=== PATIENT | male | born 2000 | race Caucasian/White ===

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

== ENCOUNTER 2020-09-16 23:18 | Emergency (ER) | payer BC ==
--- NOTE | 2020-09-17 04:05 | ER ---
Nurse's Notes [facility] Name: Kingsley Alvarenga Age: 20 yrs Sex: Male : 2000 Arrival Date: 09/16/2020 Time: 23:21 Bed 13 Private MD: Diagnosis: Presentation: 09/16 23:23 Chief complaint: Patient states: he was playing a video game at home and suddenly had bb chest pain really bad with tightness and sharp pain. Coronavirus screen: At this time, the client does not indicate any symptoms associated with coronavirus-19. Ebola Screen: No symptoms or risks identified at this time. Initial Sepsis Screen: Does the patient meet any 2 criteria? No. Patient's initial sepsis screen is negative. Does the patient have a suspected source of infection? No. Patient's initial sepsis screen is negative. Risk Assessment: Do you want to hurt yourself or someone else? Patient reports no desire to harm self or others. Onset of symptoms was September 16, 2020. 23:23 Method Of Arrival: Ambulatory bb 23:23 Acuity: BILL 3 bb Triage Assessment: 23:25 General: Appears in no apparent distress. Behavior is calm, cooperative. Pain: bb Complains of pain in chest Pain currently is 4 out of 10 on a pain scale. Neuro: Level of Consciousness is awake, alert, obeys commands, Oriented to person, place, time, situation. Cardiovascular: Capillary refill < 3 seconds Patient's skin is warm and dry. Respiratory: Respiratory effort is even, unlabored, Respiratory pattern is regular. GI: No signs and/or symptoms were reported involving the gastrointestinal system. Derm: Skin is pink, warm \T\ dry. Musculoskeletal: Circulation, motion, and sensation intact. Historical: - Allergies: 23:25 No Known Allergies; bb - Home Meds: 23:25 None [Active]; bb - PMHx: 23:25 None; bb - PSHx: 23:25 None; bb - Immunization history:: Adult Immunizations up to date. - Social history:: Smoking status: Patient denies any tobacco usage or history of. Assessment: 09/17 04:00 Reassessment: Pt Verbalized desire to leave. Provider notified. Pt informed that jb4 leaving at this time would be considered leaving against medical advise and that the provider wants to do more test. Provider is at the bedside explaining desire for further testing. Pt refused further testing. Informed pt that symptoms could return or worsen up to the point of or serious injury. Pt verbalized understanding of risk, signed AMA form, left ED with steady gait. Vital Signs: 09/16 23:23 BP 141 / 84; Pulse 73; Resp 16; Temp 98.6(O); Pulse Ox 98% on R/A; Weight 63.5 kg (R); bb Height 5 ft. 6 in. (167.64 cm) (R); Pain 4/10; 23:23 Body Mass Index 22.60 (63.50 kg, 167.64 cm) bb ED Course: 23:21 Patient arrived in ED. bp1 23:25 Triage completed. bb 23:25 Arm band placed on Patient placed in waiting room, Patient notified of wait time. EKG bb completed in triage. Results shown to MD. Family accompanied patient. 09/17 03:25 Antonio Tran MD is Attending Physician. mh7 Administered Medications: No medications were administered Outcome: 04:00 AMA AMA form signed jb4 04:00 Condition: unchanged 04:04 Patient left the ED. jb4 Signatures: Lani Whitfield RN RN bb [place] Rocha, GRAEME RN jb4 Genet Boyce [facility] Antonio Tran MD MD mh7
[2020-09-17 04:12] VITALS: BP 141/84; TEMP 98.6; O2SAT 98
--- NOTE | 2020-09-17 12:59 | EKG ---
Test Date: 2020-09-16 Test Time: 23:33:14 Territory Sales Professional: TL MEASUREMENT RESULTS: Intervals: Rate: 63 LA: 148 QRSD: 88 QT: 364 QTc: 372 [place]: P: 58 LA: 148 QRS: 70 T: 29 INTERPRETIVE STATEMENTS: Sinus rhythm with marked sinus arrhythmia Otherwise normal ECG Compared to ECG 05/31/2018 15:25:39 Sinus bradycardia no longer present Electronically Signed On 09-17-20 12:58:59 CDT by Deandre Gonzalez
--- OUTSIDE RECORDS SUMMARY | 2020-09-17 15:04 | XMS REPORT | Continuity of Care Document ---
:2000 Author Organization [facility] t Address [address] [place] [address] Care Team Providers Name Role Phone CHA Attending Clinician Unavailable Problems Condition Condition Condition Status Onset Resolution Last Treating Co mments Source Name Details Category Date Date Treatment Clinician Date Sensation Sensation Problem Active Uni vers of of ity of fullness fullness [place] in both in both Physici ears ears ans Allergies, Adverse Reactions, Alerts This patient has no known allergies or adverse reactions. Social History Smoking Status Start Date Stop Date Source Never smoker [facility] Physicians Medications This patient has no known medications. Vital Signs Vital Name Observation Time Observation Value Comments Source Weight 2018-05-29 14:29:00 116.4375 [lb_av] [facility] Physicians Body Mass Index 2018-05-29 14:29:00 17.7 kg/m2 [facility] Calculated Physicians Heart Rate 2018-05-29 14:29:00 73 /min [facility] Physicians BP Systolic 2018-05-29 14:29:00 118 mm[Hg] [facility] Phys[facility] BP Diastolic 2018-05-29 14:29:00 80 mm[Hg] [facility] Height 2018-05-29 14:29:00 68 [in_us] [facility] Physicians Procedures This patient has no known procedures. Encounters Start End Encounter Admission Attending Care Care Encounter Source Date/Time Date/Time Type Type Clinicians Facility Department ID 2018-09-17 2018-09-17 Emergency E [facility] [id number] [facility] 16:48:00 16:48:00 2018-05-29 2018-05-29 Appointmen BENJIE CHA [facility]tor[facility] [phone] [facility] 13:45:00 13:45:00 t; SURI CHA yngology - i ty of [facility] ans Results This patient has no known results.
--- NOTE | 2020-09-18 09:10 | EDPHYS ---
Physician Documentation [facility] Name: Kingsley Alvarenga Age: 20 yrs Sex: Male : 2000 Arrival Date: 09/16/2020 Time: 23:21 Bed 13 Private MD: ED Physician Antonio Tran HPI: 09/17 03:40 This 20 yrs old Male presents to ER via Ambulatory with complaints of Chest mh7 Pain, Chest Tightness. 03:40 Associated signs and symptoms: Pertinent negatives: abdominal pain, cough, diaphoresis, mh7 dizziness, headache, lower extremity pain, lower extremity swelling, lightheadedness, nausea, near syncope, palpitations, recent travel, shortness of breath, syncope, vomiting. 03:40 The patient or guardian reports chest pain that is located primarily in the substernal mh7 area. The pain does not radiate. The chest pain is described as sharp, tightness. Duration: The patient or guardian reports multiple episodes, that have now resolved, that are intermittent, that wax and wane. Modifying factors: The symptoms are alleviated by nothing. the symptoms are aggravated by nothing. Severity of pain: At its worst the pain was moderate last night, in the emergency department the pain has improved markedly. Historical: - Allergies: 09/16 23:25 No Known Allergies; bb - Home Meds: 23:25 None [Active]; bb - PMHx: 23:25 None; bb - PSHx: 23:25 None; bb - Immunization history:: Adult Immunizations up to date. - Social history:: Smoking status: Patient denies any tobacco usage or history of. ROS: 09/17 03:40 Constitutional: Negative for fever, chills, and weight loss, Eyes: Negative for injury, mh7 pain, redness, and discharge, ENT: Negative for injury, pain, and discharge, Neck: Negative for injury, pain, and swelling, Respiratory: Negative for shortness of breath, cough, wheezing, and pleuritic chest pain, Abdomen/GI: Negative for abdominal pain, nausea, vomiting, diarrhea, and constipation, Back: Negative for injury and pain, : Negative for injury, bleeding, discharge, and swelling, MS/Extremity: Negative for injury and deformity, Skin: Negative for injury, rash, and discoloration, Neuro: Negative for headache, weakness, numbness, tingling, and seizure, Psych: Negative for depression, anxiety, suicide ideation, homicidal ideation, and hallucinations, Allergy/Immunology: Negative for hives, rash, and allergies, Endocrine: Negative for neck swelling, polydipsia, polyuria, polyphagia, and marked weight changes, Hematologic/Lymphatic: Negative for swollen nodes, abnormal bleeding, and unusual bruising. Exam: 03:40 Constitutional: This is a well developed, well nourished patient who is awake, alert, mh7 and in no acute distress. Head/Face: Normocephalic, atraumatic. Eyes: Pupils equal round and reactive to light, extra-ocular motions intact. Lids and lashes normal. Conjunctiva and sclera are non-icteric and not injected. Cornea within normal limits. Periorbital areas with no swelling, redness, or edema. Neck: Trachea midline, no thyromegaly or masses palpated, and no cervical lymphadenopathy. Supple, full range of motion without nuchal rigidity, or vertebral point tenderness. No Meningismus. Chest/axilla: Normal chest wall appearance and motion. Nontender with no deformity. No lesions are appreciated. Cardiovascular: Regular rate and rhythm with a normal S1 and S2. No gallops, murmurs, or rubs. Normal PMI, no JVD. No pulse deficits. Respiratory: Lungs have equal breath sounds bilaterally, clear to auscultation and percussion. No rales, rhonchi or wheezes noted. No increased work of breathing, no retractions or nasal flaring. Abdomen/GI: Soft, non-tender, with normal bowel sounds. No distension or tympany. No guarding or rebound. No evidence of tenderness throughout. Back: No spinal tenderness. No costovertebral tenderness. Full range of motion. Skin: Warm, dry with normal turgor. Normal color with no rashes, no lesions, and no evidence of cellulitis. MS/ Extremity: Pulses equal, no cyanosis. Neurovascular intact. Full, normal range of motion. Neuro: Awake and alert, GCS 15, oriented to person, place, time, and situation. Cranial nerves II-XII grossly intact. Motor strength 5/5 in all extremities. Sensory grossly intact. Cerebellar exam normal. Normal gait. Psych: Awake, alert, with orientation to person, place and time. Behavior, mood, and affect are within normal limits. Vital Signs: 09/16 23:23 BP 141 / 84; Pulse 73; Resp 16; Temp 98.6(O); Pulse Ox 98% on R/A; Weight 63.5 kg (R); bb Height 5 ft. 6 in. (167.64 cm) (R); Pain 4/10; 23:23 Body Mass Index 22.60 (63.50 kg, 167.64 cm) bb MDM: 09/17 03:40 Differential diagnosis: acute pericarditis, anxiety, chest wall pain, costochondritis, mh7 myocarditis, pericarditis, pneumonia, pneumothorax. HEART Score: History: Slightly Suspicious (0), ECG: Normal (0), Age: < or = 45 years (0), Risk Factors: No Risk Factors Known (0). Data reviewed: vital signs, nurses notes, EKG. Data interpreted: Pulse oximetry: on room air is 98 %. Interpretation: normal. Counseling: I had a detailed discussion with the patient and/or guardian regarding: the historical points, exam findings, and any diagnostic results supporting the discharge/admit diagnosis. Refusal of service: The patient/guardian displays adequate decision making capability and despite a detailed discussion of alternatives, benefits, risks, and consequences refuses: all lab tests, all X-rays. 05:01 Patient medically screened. [facility] 09/17 02:26 Order name: EKG - Nurse/Tech; Complete Time: 02:26 mw2 Administered Medications: No medications were administered Disposition Summary: 09/17/20 04:04 Left Against Medical Advice Location: Home jb4 Condition: Undetermined jb4 Signatures: aLni Whitfield RN RN [place] Mejias RN RN jb4 Donna Jimenez mw2 Antonio Tran MD MD mh7 Corrections: (The following items were deleted from the chart) 04:58 04:56 The patient or guardian reports chest pain that is located primarily in the mh7 substernal area, 7 04:58 04:56 The pain does not radiate. [place] [id number] 04:58 04:56 This 20 yrs old Male presents to ER via Ambulatory with complaints of mh7 Chest Pain, Chest Tightness. 7
== END 2020-09-17 04:04 | disposition left against medical advice (07) ==
LOC: ER 23:18
DX: R07.9 Chest pain, unspecified (principal)
CPT/HCPCS: 93005; 99281

== ENCOUNTER 2020-12-10 01:21 | Emergency (ER) | payer BC ==
[2020-12-10 02:02] LABS: Protime INR 1.26
[2020-12-10 02:04] LABS: Absolute Lymphocytes (CBC) 2.4 K/uL (0.7-4.9); RBC Red Blood Cell Count 5.25 M/uL (4.33-5.43)
[2020-12-10 02:12] LABS: Urine Blood Negative (Negative); Urine Glucose Negative (Negative); Urine Protein Negative (Negative); Urine Specific Gravity >=1.030 (1.005-1.030); Urine pH 6.5 (5.0-7.0)
[2020-12-10 02:25] LABS: ALT/SGPT 28 U/L (12-78); AST/SGOT 13 U/L (15-37); Albumin 4.7 g/dL (3.4-5.0); Alkaline Phosphatase 66 U/L (45-117); BUN Blood Urea Nitrogen 8 mg/dL (7-18); Bicarbonate 27 mmol/L (21-32); Bilirubin Direct 0.3 mg/dL (0-0.2); Bilirubin Total 1.2 mg/dL (0.2-1.0); Creatine Phosphokinase 64 U/L (39-308); Glucose Level 93 mg/dL (74-106); Magnesium 2.2 mg/dL (1.8-2.4); NT PRO-BNP 9 pg/mL (<125); Potassium 3.2 mmol/L (3.5-5.1); Protein, Total 7.8 g/dL (6.4-8.2); Sodium Level 142 mmol/L (136-145); Troponin (Emerg Dept Use Only) < 0.02 ng/mL (0.0-0.045)
[2020-12-10 02:33] LABS: Basophils % 0.6 % (0-1.3); Hematocrit 45.1 % (39.6-49.0); Lymphocytes % 31.5 % (15.3-44.8); MPV 7.8 fL (7.6-11.3)
[2020-12-10 02:41] LABS: Barbiturates NEGATIVE (NEGATIVE); Benzodiazepines NEGATIVE (NEGATIVE); Cocaine NEGATIVE (NEGATIVE); METHAMPHETAM NEGATIVE (NEGATIVE); Methadone NEGATIVE (NEGATIVE); Opiates NEGATIVE (NEGATIVE); Phencyclidine NEGATIVE (NEGATIVE); THC Cannibis NEGATIVE (NEGATIVE)
[2020-12-10] MEDS ORDERED: NA CHLORIDE 0.9% 1,000 ML ONE (04:33)
[2020-12-10] MEDS ORDERED: KETOROLAC 30 MG/ML INJ ONE (04:33)
--- NOTE | 2020-12-10 04:43 | ER ---
Nurse's Notes [facility] Name: Kingsley Alvarenga Age: 20 yrs Sex: Male : 2000 Arrival Date: 12/10/2020 Time: 01:24 Bed 13 Private MD: Diagnosis: Palpitations;Chest pain, unspecified Presentation: 12/10 01:38 Chief complaint: Patient states: Pt states his heart has been racing for the past 2 wg days. States he has been seeing a breast trimmer who prescribed metoprolol (unknown dose) and took it yesterday for the first time. Pt states he has been feeling his heart rate in the 120's and feels like it skips and feels palpitations. Pt states he has been also having chest discomfort which radiates into his left arm. Pt denies N/V/D, abd pain, and diaphoresis. Coronavirus screen: Vaccine status: Patient reports being unvaccinated. At this time, the client does not indicate any symptoms associated with coronavirus-19. Ebola Screen: Patient negative for fever greater than or equal to 101.5 degrees Fahrenheit, and additional compatible Ebola Virus Disease symptoms Patient denies exposure to infectious person. Patient denies travel to an Ebola-affected area in the 21 days before illness onset. Initial Sepsis Screen: Does the patient meet any 2 criteria? No. Patient's initial sepsis screen is negative. Does the patient have a suspected source of infection? No. Patient's initial sepsis screen is negative. Risk Assessment: Do you want to hurt yourself or someone else? Patient reports no desire to harm self or others. Onset of symptoms was December 08, 2020. 01:38 Method Of Arrival: Ambulatory 01:38 Acuity: BILL 3 Triage Assessment: 01:42 General: Appears uncomfortable, well groomed, well developed, Behavior is calm, wg cooperative, appropriate for age. Pain: Complains of pain in chest and left arm. Cardiovascular: Reports chest pain, palpitations, Denies diaphoresis, lightheadedness, nausea, shortness of breath, syncope, vomiting. Historical: - Allergies: 01:42 No Known Allergies; wg - Home Meds: 01:42 Metoprolol Tartrate Oral [Active]; wg - PMHx: 01:42 "Rapid Heart Rate"; wg - Immunization history:: Adult Immunizations up to date. - Social history:: Smoking status: Patient denies any tobacco usage or history of. Patient uses street drugs, marijuana, Patient/guardian denies using alcohol, IV drugs. Screenin:45 Abuse screen: Denies threats or abuse. Denies injuries from another. Nutritional dc2 screening: No deficits noted. Tuberculosis screening: No symptoms or risk factors identified. Never had TB. Possible symptoms: None. Fall Risk None identified. No fall in past 12 months (0 pts). No secondary diagnosis (0 pts). No IV (0 pts). Ambulatory Aid- None/Bed Rest/Nurse Assist (0 pts). Gait- Normal/Bed Rest/Wheelchair (0 pts) Mental Status- Oriented to own ability (0 pts). Total Magana Fall Scale indicates No Risk (0-24 pts). Assessment: 01:45 General: Appears in no apparent distress. comfortable, slender, well groomed, well dc2 developed, Behavior is calm, cooperative. Pain: Pain: Complains of pain in Left chest wall radiating almost to the arm pit since 4pm yesterday Pain does not radiate. Pain currently is 2 out of 10 on a pain scale. Quality of pain is described as aching, dull, Pain began 1 day ago. Neuro: No deficits noted. Cardiovascular: No deficits noted. Respiratory: No deficits noted. GI: No deficits noted. : No deficits noted. Musculoskeletal: No deficits noted. 02:42 Reassessment: Patient and/or family updated on plan of care and expected duration. Pain dc2 level reassessed. Vital Signs: 01:38 BP 139 / 78; Pulse 78; Resp 18; Temp 98.7; Pulse Ox 98% on R/A; Weight 65.77 kg; Height wg 5 ft. 7 in. (170.18 cm); Pain 4/10; 01:59 BP 139 / 78; Pulse 78; Resp 17; Pulse Ox 99% on R/A; Pain 2/10; dc2 02:36 BP 118 / 62; Pulse 71; Resp 16; Pulse Ox 100% ; Pain 1/10; dc2 03:07 BP 125 / 66; Pulse 64; Resp 17; Pulse Ox 99% ; Pain 0/10; dc2 04:09 BP 125 / 81; Pulse 82; Resp 17; Pulse Ox 100% ; Pain 2/10; dc2 04:51 BP 124 / 72; Pulse 80; Resp 17; Temp 97.5; Pulse Ox 100% ; Pain 1/10; dc2 01:38 Body Mass Index 22.71 (65.77 kg, 170.18 cm) Vitals: 01:59 Cardiac Rhythm Assessment Regular. dc2 02:37 Cardiac Rhythm Assessment Sinus rhythm. dc2 ED Course: 01:24 Patient arrived in ED. wm 01:25 Antonio Tran MD is Attending Physician. 7 01:42 Triage completed. wg 01:42 Arm band placed on right wrist. EKG completed in triage. Results shown to MD. wg 01:44 Antonette Coronado, RN is Primary Nurse. dc2 01:44 X-ray(s) taken. dc2 01:45 panel monitor on. Pulse ox on. NIBP on. Door closed. dc2 01:45 Patient has correct armband on for positive identification. Bed in low position. Call dc2 light in reach. Side rails up X 1. Adult w/ patient. 01:57 XRAY Chest (1 view) In Process Unspecified. EDMS 01:59 No provider procedures requiring assistance completed. Inserted saline lock: 22 gauge dc2 in right antecubital area, using aseptic technique. Blood collected. Patient maintains SpO2 saturation greater than 95% on room air. 02:02 TSH Sent. dc2 02:02 CPK Sent. dc2 02:02 Basic Metabolic Panel Sent. dc2 02:02 CBC with Diff Sent. dc2 02:02 LFT's Sent. dc2 02:02 Magnesium Sent. dc2 02:02 NT PRO-BNP Sent. dc2 02:02 Troponin (emerg Dept Use Only) Sent. dc2 02:02 PT-INR Sent. dc2 02:03 Urine collected: clean catch specimen, clear, Amount Voided: 30mL. dc2 03:52 CT Chest For PE Angio In Process Unspecified. EDMS 04:51 IV discontinued, intact, bleeding controlled, No redness/swelling at site. Pressure dc2 dressing applied. Administered Medications: 04:10 Drug: NS 0.9% 1000 ml Route: IV; Rate: 1000 ml; Infused Over: 1 hrs; Site: right dc2 antecubital; Delivery: Primary tubing; 04:52 Follow up: IV Status: Completed infusion; IV Intake: 1000ml dc2 04:10 Drug: Ketorolac 30 mg {Note: For left chest pain PRS 2/10.} Route: IVP; Infused Over: 1 dc2 mins; Site: right antecubital; 04:52 Follow up: Response: Pain is decreased dc2 Intake: 04:52 IV: 1000ml; Total: 1000ml. dc2 Outcome: 04:43 Discharge ordered by MD. hsu 04:47 Discharged to home ambulatory. dc2 04:47 Condition: stable 04:47 Discharge instructions given to patient, Instructed on discharge instructions, follow up and referral plans. Demonstrated understanding of instructions. 04:56 Patient left the ED. dc2 Signatures: Dispatcher [employer] EDAntonio Camacho MD MD Ryanne Anaya Liam, RN wg Charters, Denise, RN RN dc2 Corrections: (The following items were deleted from the chart) 04:23 04:10 Ketorolac 30 mg IVP at 1 bolus in right antecubital over 1 hrs dc2 dc2
--- NOTE | 2020-12-10 04:43 | EDPHYS ---
Physician Documentation [facility] Name: Kingsley Alvarenga Age: 20 yrs Sex: Male : 2000 Arrival Date: 12/10/2020 Time: 01:24 Bed 13 Private MD: ED Physician Antonio Tran HPI: 12/10 01:48 This 20 yrs old Male presents to ER via Ambulatory with complaints of Chest mh7 Pain, Shortness Of Breath. 01:48 The patient presents with a history of heart racing. Context: The symptoms occur mh7 without known cause. Onset: The symptoms/episode began/occurred 2 day(s) ago. Duration: The patient or guardian reports multiple episodes, that are intermittent, that wax and wane, with no pattern. Modifying factors: The symptoms are aggravated by nothing. The symptoms are alleviated by nothing. Associated signs and symptoms: Pertinent positives: chest pain, SOB, Pertinent negatives: anxiety, cough, fever, lightheadedness, nausea, syncope, near-syncope, unusual stressors, vertigo, vomiting. Severity of symptoms: At their worst the symptoms were moderate yesterday, in the emergency department the symptoms have improved moderately. The patient has experienced similar episodes in the past, multiple times. The patient has been recently seen by a physician: yesterday. States that he is heart racing intermittently over the last 2 days. He has had similar symptoms intermittently for the past several years. He was started on metoprolol by crisis worker yesterday. He also states that he has had some intermittent chest pain and shortness of breath. Denies any fever, cough, abdominal pain, nausea, vomiting, diarrhea, dizziness, numbness/tingling, or weakness.. Historical: - Allergies: 01:42 No Known Allergies; wg - Home Meds: 01:42 Metoprolol Tartrate Oral [Active]; wg - PMHx: 01:42 "Rapid Heart Rate"; wg - Immunization history:: Adult Immunizations up to date. - Social history:: Smoking status: Patient denies any tobacco usage or history of. Patient uses street drugs, marijuana, Patient/guardian denies using alcohol, IV drugs. ROS: 01:48 Constitutional: Negative for fever, chills, and weight loss, Eyes: Negative for injury, mh7 pain, redness, and discharge, ENT: Negative for injury, pain, and discharge, Neck: Negative for injury, pain, and swelling, Abdomen/GI: Negative for abdominal pain, nausea, vomiting, diarrhea, and constipation, Back: Negative for injury and pain, : Negative for injury, bleeding, discharge, and swelling, MS/Extremity: Negative for injury and deformity, Skin: Negative for injury, rash, and discoloration, Neuro: Negative for headache, weakness, numbness, tingling, and seizure, Psych: Negative for depression, anxiety, suicide ideation, homicidal ideation, and hallucinations, Allergy/Immunology: Negative for hives, rash, and allergies, Endocrine: Negative for neck swelling, polydipsia, polyuria, polyphagia, and marked weight changes, Hematologic/Lymphatic: Negative for swollen nodes, abnormal bleeding, and unusual bruising. Exam: 01:48 Constitutional: This is a well developed, well nourished patient who is awake, alert, mh7 and in no acute distress. Head/Face: Normocephalic, atraumatic. Eyes: Pupils equal round and reactive to light, extra-ocular motions intact. Lids and lashes normal. Conjunctiva and sclera are non-icteric and not injected. Cornea within normal limits. Periorbital areas with no swelling, redness, or edema. Neck: Trachea midline, no thyromegaly or masses palpated, and no cervical lymphadenopathy. Supple, full range of motion without nuchal rigidity, or vertebral point tenderness. No Meningismus. Chest/axilla: Normal chest wall appearance and motion. Nontender with no deformity. No lesions are appreciated. Cardiovascular: Regular rate and rhythm with a normal S1 and S2. No gallops, murmurs, or rubs. Normal PMI, no JVD. No pulse deficits. Respiratory: Lungs have equal breath sounds bilaterally, clear to auscultation and percussion. No rales, rhonchi or wheezes noted. No increased work of breathing, no retractions or nasal flaring. Abdomen/GI: Soft, non-tender, with normal bowel sounds. No distension or tympany. No guarding or rebound. No evidence of tenderness throughout. Back: No spinal tenderness. No costovertebral tenderness. Full range of motion. Skin: Warm, dry with normal turgor. Normal color with no rashes, no lesions, and no evidence of cellulitis. MS/ Extremity: Pulses equal, no cyanosis. Neurovascular intact. Full, normal range of motion. Neuro: Awake and alert, GCS 15, oriented to person, place, time, and situation. Cranial nerves II-XII grossly intact. Motor strength 5/5 in all extremities. Sensory grossly intact. Cerebellar exam normal. Normal gait. Psych: Awake, alert, with orientation to person, place and time. Behavior, mood, and affect are within normal limits. Vital Signs: 01:38 BP 139 / 78; Pulse 78; Resp 18; Temp 98.7; Pulse Ox 98% on R/A; Weight 65.77 kg; Height wg 5 ft. 7 in. (170.18 cm); Pain 4/10; 01:59 BP 139 / 78; Pulse 78; Resp 17; Pulse Ox 99% on R/A; Pain 2/10; dc2 02:36 BP 118 / 62; Pulse 71; Resp 16; Pulse Ox 100% ; Pain 1/10; dc2 03:07 BP 125 / 66; Pulse 64; Resp 17; Pulse Ox 99% ; Pain 0/10; dc2 04:09 BP 125 / 81; Pulse 82; Resp 17; Pulse Ox 100% ; Pain 2/10; dc2 04:51 BP 124 / 72; Pulse 80; Resp 17; Temp 97.5; Pulse Ox 100% ; Pain 1/10; dc2 01:38 Body Mass Index 22.71 (65.77 kg, 170.18 cm) wg MDM: 04:41 Differential diagnosis: arrythmia, dehydration, stress disorder, Pulmonary embolus, mh7 hyperthyroid, palpitations. Data reviewed: vital signs, nurses notes, old medical records, lab test result(s), cardiac enzymes, CBC, electrolytes, urinalysis, urine drug screen, EKG, radiologic studies, CT scan, plain films. Data interpreted: Pulse oximetry: on room air is 100 %. Interpretation: normal. Counseling: I had a detailed discussion with the patient and/or guardian regarding: the historical points, exam findings, and any diagnostic results supporting the discharge/admit diagnosis, lab results, radiology results, the need for outpatient follow up, to return to the emergency department if symptoms worsen or persist or if there are any questions or concerns that arise at home. Response to treatment: the patient's symptoms have resolved after treatment, the patient's blood pressure is in an acceptable range, mental status has returned to baseline, the patient no longer shows bradycardia, the patient is not short of breath, the patient is not tachycardic, the patient's pain is gone, the patient's temperature has normalized. 04:43 Patient medically screened. 12/10 01:37 Order name: Basic Metabolic Panel [facility] 12/10 01:37 Order name: CBC with Diff [facility] 12/10 01:37 Order name: LFT's 12/10 01:37 Order name: Magnesium [facility] 12/10 01:37 Order name: NT PRO-BNP [facility] 12/10 01:37 Order name: PT-INR; Complete Time: 02:40 [facility] 12/10 01:37 Order name: Troponin (emerg Dept Use Only) [facility] 12/10 01:37 Order name: TSH [facility] 12/10 01:37 Order name: CPK [facility] 12/10 01:37 Order name: UDS; Complete Time: 03:27 [facility] 12/10 01:37 Order name: Basic Metabolic Panel; Complete Time: 02:40 [facility] 12/10 01:37 Order name: CBC with Automated Diff; Complete Time: 03:27 [facility] 12/10 01:38 Order name: Liver (Hepatic) Function; Complete Time: 02:40 12/10 01:38 Order name: Magnesium; Complete Time: 02:40 12/10 01:37 Order name: XRAY Chest (1 view) [facility] 12/10 01:37 Order name: EKG; Complete Time: 01:38 12/10 01:37 Order name: Cardiac monitoring; Complete Time: 02:02 12/10 01:37 Order name: EKG - Nurse/Tech; Complete Time: 01:58 12/10 01:37 Order name: IV Saline Lock; Complete Time: 02:02 12/10 01:37 Order name: Labs collected and sent; Complete Time: 02:02 12/10 01:37 Order name: O2 Per Protocol; Complete Time: 02:02 12/10 01:37 Order name: O2 Sat Monitoring; Complete Time: 02:14 12/10 01:38 Order name: NT PRO-BNP; Complete Time: 02:40 12/10 01:38 Order name: Troponin (Emerg Dept Use Only); Complete Time: 02:40 [facility] 12/10 01:38 Order name: Thyroid Stimulating Hormone; Complete Time: 02:40 [facility] 12/10 01:38 Order name: Creatine Phosphokinase; Complete Time: 02:40 [facility] 12/10 02:11 Order name: Urine Dipstick-Ancillary; Complete Time: 02:40 [facility] 12/10 03:28 Order name: CT Chest For PE Angio 7 12/10 01:37 Order name: Urine Dipstick-Ancillary (obtain specimen); Complete Time: 02:11 [facility] Administered Medications: 04:10 Drug: NS 0.9% 1000 ml Route: IV; Rate: 1000 ml; Infused Over: 1 hrs; Site: right dc2 antecubital; Delivery: Primary tubing; 04:52 Follow up: IV Status: Completed infusion; IV Intake: 1000ml dc2 04:10 Drug: Ketorolac 30 mg {Note: For left chest pain PRS 2/10.} Route: IVP; Infused Over: 1 dc2 mins; Site: right antecubital; 04:52 Follow up: Response: Pain is decreased dc2 Disposition Summary: 12/10/20 04:43 Discharge Ordered Location: Home [facility] Problem: an acute exacerbation [facility] Symptoms: have improved [facility] Condition: Stable [facility] Diagnosis - Palpitations 7 - Chest pain, unspecified 7 Followup: [facility] - With: Private Physician - When: 1 - 2 days - Reason: Worsening of condition, Recheck today's complaints, Continuance of care, Re-evaluation by your physician Discharge Instructions: - Discharge Summary Sheet [facility] - Palpitations 7 - Nonspecific Chest Pain, Adult, [id number] [facility] Forms: - Medication Reconciliation Form [facility] - Thank You Letter [facility] - Antibiotic Education [facility] - Prescription Opioid Use [facility] Signatures: Dispatcher [employer] Antonio Guerra MD MD 7 Jonathan Mo RN Antonette Coronado RN RN dc2
[2020-12-10 05:09] VITALS: O2SAT 100
[2020-12-10 05:11] VITALS: BP 124/72; TEMP 97.5
--- NOTE | 2020-12-10 07:55 | RAD REPORT ---
EXAM DESCRIPTION: RAD - Chest Single View - 12/10/2020 1:57 am CLINICAL HISTORY: Chest pain;SOB COMPARISON: Chest Pa And Lat (2 Views) dated 09/06/2018; Chest Pa And Lat (2 Views) dated 05/31/2018 FINDINGS: Lines: None. Lungs: No evidence of edema or pneumonia. Pleural: No significant pleural effusions or pneumothorax. Cardiac: The heart size is within normal limits. Bones: No acute fractures. Thoracolumbar curvature. Other: IMPRESSION: No acute cardiopulmonary disease.
--- NOTE | 2020-12-10 12:20 | RAD REPORT ---
EXAM DESCRIPTION: CT - Chest For Pe Angio - 12/10/2020 6:29 am COMPARISON: CT PE May 31, 2018 CLINICAL HISTORY: [facility] MAIN Palpitations;SOB TECHNIQUE: CT images through the chest with IV contrast using the pulmonary embolus protocol. Multip lanar reformats. MIPS reformats are provided. Automated exposure control was utilized on this exami nation as a dose lowering technique. FINDINGS: Pulmonary arteries and vascular: Diagnostic quality bolus. No filling defects. Heart and mediastinum: Heart size is normal. No lymphadenopathy. Thyroid gland: Visualized portions are normal. Lungs: Clear. Airways: No filling defects. No bronchiectasis. Pleura: No pneumothorax. No significant pleural effusion. Subphrenic structures: Within normal limits. Musculoskeletal and soft tissues: Within normal limits for age. CHEST IMPRESSION: No evidence of pulmonary embolus or other acute chest process. Electronically signed by: Nasir Pelletier MD 12/10/2020 4:31 AM CDT Due to temporary technical issues with the PACS/Fluency reporting system, reports are being signed by the in house radiologists without review as a courtesy to insure prompt reporting. The interpreting radiologist is fully responsible for the content of the report.
--- NOTE | 2020-12-11 16:00 | EKG ---
Test Date: 2020-12-10 Test Time: 01:41:31 Tester [employer]: MEASUREMENT RESULTS: Intervals: Rate: 51 RI: 150 QRSD: 84 QT: 404 QTc: 372 [place]: P: 60 RI: 150 QRS: 75 T: 49 INTERPRETIVE STATEMENTS: Sinus bradycardia with sinus arrhythmia Possible Left atrial enlargement Borderline ECG Compared to ECG 09/16/2020 23:33:14 Sinus rhythm no longer present Electronically Signed On 12-11-20 15:56:43 CDT by Deandre Gonzalez
== END 2020-12-10 04:56 | disposition home or self-care (01) ==
LOC: ER 01:21
DX: R07.9 Chest pain, unspecified (principal); R00.2 Palpitations
CPT/HCPCS: 96361; 93005; 85025; 80048; 36415; 83735; 82550; 85610; 80076; 84443; 81003; 84484; 83880; 80307; 71275; 71045; 96374; 99285; Q9967; J7030

== ENCOUNTER 2020-12-11 07:05 | Emergency (ER) | payer BC ==
[2020-12-11 08:08] LABS: Absolute Lymphocytes (CBC) 2.2 K/uL (0.7-4.9); Basophils % 0.8 % (0-1.3); Hematocrit 43.6 % (39.6-49.0); Lymphocytes % 37.1 % (15.3-44.8); MPV 7.9 fL (7.6-11.3); RBC Red Blood Cell Count 5.08 M/uL (4.33-5.43)
[2020-12-11 08:22] LABS: BUN Blood Urea Nitrogen 9 mg/dL (7-18); Bicarbonate 26 mmol/L (21-32); Glucose Level 92 mg/dL (74-106); Magnesium 2.1 mg/dL (1.8-2.4); Potassium 3.7 mmol/L (3.5-5.1); Sodium Level 141 mmol/L (136-145); Troponin (Emerg Dept Use Only) < 0.02 ng/mL (0.0-0.045)
--- NOTE | 2020-12-11 08:29 | ER ---
Nurse's Notes [facility] Name: Kingsley Alvarenga Age: 20 yrs Sex: Male : 2000 Arrival Date: 12/11/2020 Time: 07:09 Bed 28 Private MD: Diagnosis: Palpitations Presentation: 12/11 07:13 Chief complaint: Patient states: Chest pain x 2 years. Tuesday started metoprolol 12.5mg ch5 BID. Today felt SHOB. Had COVID 2-3weeks ago. Coronavirus screen: Vaccine status:. Ebola Screen: Patient negative for fever greater than or equal to 101.5 degrees Fahrenheit, and additional compatible Ebola Virus Disease symptoms Patient denies exposure to infectious person. Patient denies travel to an Ebola-affected area in the 21 days before illness onset. Initial Sepsis Screen: Does the patient meet any 2 criteria? No. Patient's initial sepsis screen is negative. Initial Sepsis Screen: Does the patient have a suspected source of infection? No. Patient's initial sepsis screen is negative. Risk Assessment: Do you want to hurt yourself or someone else?. Onset of symptoms is unknown. 07:13 Method Of Arrival: Ambulatory 5 07:13 Acuity: BILL 3 ch5 - Immunization history:: Adult Immunizations not immunized, Client reports having NOT received the Covid vaccine. - Social history:: Smoking status: Patient denies any tobacco usage or history of. - Family history:: not pertinent. - Hospitalizations: : No recent hospitalization is reported. Screenin:18 Abuse screen: Denies threats or abuse. Denies injuries from another. Nutritional ch5 screening: No deficits noted. Tuberculosis screening: No symptoms or risk factors identified. Fall Risk None identified. Assessment: 07:33 General: Appears in no apparent distress. comfortable, Behavior is calm, cooperative, kh1 appropriate for age. Neuro: No deficits noted. Level of Consciousness is awake, alert, obeys commands, Oriented to person, place, time, situation, Corporate Accountant are equal bilaterally Moves all extremities. Gait is steady, Speech is normal. Cardiovascular: No deficits noted. Reports chest pain, palpitations. Respiratory: No deficits noted. Reports pain with respiration Airway is patent Respiratory effort is even, unlabored, Respiratory pattern is regular. 07:48 Pain: Pain does not radiate. Pain began 1 day ago. kh1 Vital Signs: 07:13 BP 117 / 65; Pulse 74; Resp 18; Temp 98; Pulse Ox 100% ; Weight 65.77 kg (M); Height 5 5 ft. 7 in. (170.18 cm); Pain 1/10; 07:18 BP 117 / 65; Pulse 54; Resp 18; Pulse Ox 100% ; Pain 1/10; ch5 07:13 Body Mass Index 22.71 (65.77 kg, 170.18 cm) 5 ED Course: 07:09 Patient arrived in ED. 07:09 Julio Cesar Oakes MD is Attending Physician. rn 07:13 Eliezer Caraballo RN is Primary Nurse. 5 07:17 Triage completed. 5 07:18 Patient has correct armband on for positive identification. 5 07:34 Patient maintains SpO2 saturation greater than 95% on room air. kh1 07:35 EKG completed in triage. Results shown to MD. 1 07:35 telemetry monitor on. Pulse ox on. NIBP on. 1 07:47 Basic Metabolic Panel Sent. kh1 07:47 CBC with Diff Sent. kh1 07:47 Magnesium Sent. kh1 07:47 Troponin (emerg Dept Use Only) Sent. kh1 07:48 Arm band placed on right wrist. 1 08:25 Warm blanket given. Pillow given. 5 08:25 Initial lab(s) drawn, by ED staff, sent to lab. 5 08:42 No provider procedures requiring assistance completed. IV discontinued, intact, 1 bleeding controlled, No redness/swelling at site. Administered Medications: No medications were administered Outcome: 08:28 Discharge ordered by . rn 08:42 Discharged to home ambulatory. 1 08:42 Condition: good 08:42 Discharge instructions given to patient, Instructed on discharge instructions, follow up and referral plans. Demonstrated understanding of instructions, follow-up care. 08:43 Patient left the ED. [facility] Signatures: Julio Cesar Oakes MD MD rn Martinez, Anisa Ryanne Singh Kecia [facility] Eliezer Caraballo, GRAEME RN [facility] Corrections: (The following items were deleted from the chart) 07:18 07:17 PMHx: "Rapid Heart Rate"; [place] [id number]
--- NOTE | 2020-12-11 08:29 | EDPHYS ---
Physician Documentation [facility] Name: Kingsley Alvarenga Age: 20 yrs Sex: Male : 2000 Arrival Date: 12/11/2020 Time: 07:09 Bed 28 Private MD: ED Physician Julio Cesar Oakes HPI: 12/11 07:49 This 20 yrs old Male presents to ER via Ambulatory with complaints of Chest rn Pain. 07:49 This 20 yrs old Male presents to ER via Ambulatory with complaints of rn palpitations. 07:49 The patient presents with a history of heart racing, heart skipping beats. Context: The rn symptoms occur at rest, with anxiety. Onset: The symptoms/episode began/occurred last year. Duration: The patient or guardian reports multiple episodes, that are intermittent. Modifying factors: The symptoms are aggravated by nothing. The symptoms are alleviated by metoprolol. Associated signs and symptoms: Pertinent positives: anxiety, chest pain, lightheadedness, Pertinent negatives: syncope, vertigo, vomiting. Severity of symptoms: At their worst the symptoms were mild in the emergency department the symptoms have improved. The patient has experienced similar episodes in the past. The patient has been recently seen by a physician:. Patient reports 1 to 2 years of symptoms, palpitations and beat skipping, has had multiple work-ups including seeing cardiology. Reports negative stress test, negative Holter, negative echo, and cardiology just put him on metoprolol this week. Overall feels a little bit better but episode still happening. Denies fever. Denies blood in stool. Currently feels okay. States symptoms tend to go away when he shows up in the ER. Denies any drug use.. - Immunization history:: Adult Immunizations not immunized, Client reports having NOT received the Covid vaccine. - Social history:: Smoking status: Patient denies any tobacco usage or history of. - Family history:: not pertinent. - Hospitalizations: : No recent hospitalization is reported. ROS: 07:49 Constitutional: Negative for fever, chills, and weight loss, Eyes: Negative for injury, rn pain, redness, and discharge, Neck: Negative for injury, pain, and swelling, Cardiovascular: Negative for edema Respiratory: Negative for cough, wheezing, and pleuritic chest pain, Abdomen/GI: Negative for abdominal pain, nausea, vomiting, diarrhea, and constipation, Back: Negative for injury and pain, : Negative for injury, bleeding, discharge, and swelling, MS/Extremity: Negative for injury and deformity, Skin: Negative for injury, rash, and discoloration, Neuro: Negative for headache, weakness, numbness, tingling, and seizure. Exam: 07:49 Constitutional: This is a well developed, well nourished patient who is awake, alert, rn and in no acute distress. Head/Face: Normocephalic, atraumatic. Eyes: Periorbital areas with no swelling, redness, or edema. Cardiovascular: Regular rate and rhythm. No pulse deficits. Respiratory: Speaking full sentences, unlabored. No increased work of breathing, no retractions or nasal flaring. Abdomen/GI: Soft, non-tender Skin: Warm, dry MS/ Extremity: Pulses equal, no cyanosis. Neurovascular intact. Full, normal range of motion. Equal circumference. Neuro: Awake and alert, GCS 15 08:06 ECG was reviewed by the Attending Physician. rn Vital Signs: 07:13 BP 117 / 65; Pulse 74; Resp 18; Temp 98; Pulse Ox 100% ; Weight 65.77 kg (M); Height 5 ch5 ft. 7 in. (170.18 cm); Pain 1/10; 07:18 BP 117 / 65; Pulse 54; Resp 18; Pulse Ox 100% ; Pain 1/10; ch5 07:13 Body Mass Index 22.71 (65.77 kg, 170.18 cm) ch5 MDM: 07:10 Patient medically screened. rn 08:26 Differential diagnosis: arrythmia, dehydration, stress disorder. Data reviewed: vital rn signs, nurses notes, old medical records, lab test result(s), EKG, and as a result, I will discharge patient. Data interpreted: athletic monitor: rate is 62 beats/min, rhythm is normal sinus rhythm, regular, with no ectopy, Interpretation: normal rate, normal rhythm, Pulse oximetry: on room air is 100 %. Interpretation: normal. Counseling: I had a detailed discussion with the patient and/or guardian regarding: the historical points, exam findings, and any diagnostic results supporting the discharge/admit diagnosis, lab results, the need for outpatient follow up, to return to the emergency department if symptoms worsen or persist or if there are any questions or concerns that arise at home. Response to treatment: the patient's condition has returned to base line, the patient is now symptom free, and as a result, I will discharge patient. Special discussion: I discussed with the patient/guardian in detail that at this point there is no indication for admission to the hospital. It is understood, however, that if the symptoms persist or worsen the patient needs to return immediately for re-evaluation. Based on the history and exam findings, there is no indication for further emergent testing or inpatient evaluation. I discussed with the patient/guardian the need to see the metal furniture polisher for further evaluation of the symptoms. I discussed with the patient/guardian the need to see the primary care provider for further evaluation of the symptoms. ED course: No acute findings in blood work today. No ischemia on EKG. Normal vital signs with occasional bradycardia likely secondary to of metoprolol initiation. Will DC home with PCP and cardiology follow-up as needed.. 12/11 07:33 Order name: Basic Metabolic Panel; Complete Time: 08: rn 12/11 07:33 Order name: CBC with Diff; Complete Time: 08: rn 12/11 07:33 Order name: Magnesium; Complete Time: 08: rn 12/11 07:33 Order name: Troponin (emerg Dept Use Only); Complete Time: 08: rn 12/11 07:33 Order name: EKG; Complete Time: 07: rn 12/11 07:33 Order name: Cardiac monitoring; Complete Time: : rn 12/11 07:33 Order name: EKG - Nurse/Tech; Complete Time: : rn 12/11 07:33 Order name: IV Saline Lock; Complete Time: : rn 12/11 07:33 Order name: Labs collected and sent; Complete Time: : rn 12/11 07:33 Order name: O2 Per Protocol; Complete Time: : rn 12/11 07:33 Order name: O2 Sat Monitoring; Complete Time: : rn EC:06 Rate is 50 beats/min. Rhythm is regular. QRS Dobson is Normal. FL interval is normal. QRS rn interval is normal. No Q waves. T waves are Normal. No ST changes noted. Clinical impression: Sinus bradycardia. Interpreted by me. Reviewed by me. Administered Medications: No medications were administered Disposition Summary: 09/30/21 08:28 Discharge Ordered Location: Home rn Problem: chronic rn Symptoms: have improved rn Condition: Stable rn Diagnosis - Palpitations rn Followup: rn - With: Private Physician - When: As needed - Reason: Recheck today's complaints, Re-evaluation by your physician Discharge Instructions: - Discharge Summary Sheet rn - Palpitations rn Forms: - Medication Reconciliation Form rn - Thank You Letter rn - Antibiotic brick kiln burner - Prescription Opioid Use rn Signatures: Dispatcher [employer] EDMS Julio Cesar Oakes MD MD rn Heath, Christopher, RN RN [facility] Corrections: (The following items were deleted from the chart) 07:18 07:17 PMHx: "Rapid Heart Rate"; 5 5 07:52 07:49 Constitutional: Negative for fever, chills, and weight loss, Eyes: Negative for rn injury, pain, redness, and discharge, Neck: Negative for injury, pain, and swelling, Cardiovascular: Negative for edema Respiratory: Negative for cough, wheezing, and pleuritic chest pain, Abdomen/GI: Negative for abdominal pain, nausea, vomiting, diarrhea, and constipation, Back: Negative for injury and pain, : Negative for injury, bleeding, discharge, and swelling, MS/Extremity: Negative for injury and deformity, Skin: Negative for injury, rash, and discoloration, Neuro: Negative for headache, weakness, numbness, tingling, and seizure, rn
[2020-12-11 08:47] VITALS: BP 117/65; TEMP 98; O2SAT 100
--- NOTE | 2020-12-11 16:00 | EKG ---
Test Date: 2020-12-10 Test Time: 01:44:23 [place] Operator: MEASUREMENT RESULTS: Intervals: Rate: 77 DC: 158 QRSD: 92 QT: 376 QTc: 425 [place]: P: 66 DC: 158 QRS: 77 T: 31 INTERPRETIVE STATEMENTS: Normal sinus rhythm with sinus arrhythmia Possible Left atrial enlargement Nonspecific ST abnormality Abnormal ECG Compared to ECG 12/10/2020 01:41:31 ST (T wave) deviation now present Sinus bradycardia no longer present Electronically Signed On 12-11-20 15:56:42 CDT by Deandre Gonzalez
--- NOTE | 2020-12-12 10:44 | EKG ---
Test Date: 2020-12-11 Test Time: 07:14:31 Photography Editor: SHALINI MEASUREMENT RESULTS: Intervals: Rate: 50 [place]: 144 QRSD: 90 QT: 378 QTc: 344 [place]: P: 63 MS: 144 QRS: 71 T: 40 INTERPRETIVE STATEMENTS: Sinus bradycardia with sinus arrhythmia Possible Left atrial enlargement Borderline ECG Compared to ECG 12/10/2020 01:44:23 Sinus rhythm no longer present ST (T wave) deviation no longer present Electronically Signed On 12-12-20 10:40:17 CDT by Deandre Gonzalez
== END 2020-12-11 08:43 | disposition home or self-care (01) ==
LOC: ER 07:05
DX: R00.2 Palpitations (principal)
CPT/HCPCS: 36415; 80048; 83735; 84484; 85025; 93005; 99284

== ENCOUNTER 2020-12-11 23:22 | Emergency (ER) | payer BC ==
[2020-12-12 00:39] LABS: Absolute Lymphocytes (CBC) 3.3 K/uL (0.7-4.9); Basophils % 0.5 % (0-1.3); Hematocrit 43.2 % (39.6-49.0); Lymphocytes % 28.7 % (15.3-44.8); RBC Red Blood Cell Count 4.49 M/uL (4.33-5.43)
[2020-12-12 00:40] LABS: Protime INR 1.01
[2020-12-12 01:04] LABS: ALT/SGPT 26 U/L (12-78); AST/SGOT 18 U/L (15-37); Albumin 4.4 g/dL (3.4-5.0); Alkaline Phosphatase 122 U/L (45-117); BUN Blood Urea Nitrogen 23 mg/dL (7-18); Bicarbonate 29 mmol/L (21-32); Bilirubin Direct < 0.1 mg/dL (0-0.2); Bilirubin Total 0.4 mg/dL (0.2-1.0); Glucose Level 103 mg/dL (74-106); Magnesium 2.5 mg/dL (1.8-2.4); NT PRO-BNP 30 pg/mL (<125); Potassium 3.8 mmol/L (3.5-5.1); Protein, Total 8.8 g/dL (6.4-8.2); Sodium Level 138 mmol/L (136-145); Troponin (Emerg Dept Use Only) < 0.02 ng/mL (0.0-0.045)
--- NOTE | 2020-12-12 01:36 | EDPHYS ---
Physician Documentation [facility] Name: Kingsley Alvarenga Age: 20 yrs Sex: Male : 2000 Arrival Date: 12/11/2020 Time: 23:23 Bed DIS1 Private MD: ED Physician Lencho Leonardo HPI: 12/12 00:15 This 20 yrs old Male presents to ER via Ambulatory with complaints of Chest ma2 Pain. 00:15 The patient or guardian reports chest pain that is located primarily in the substernal ma2 area. Associated signs and symptoms: Pertinent negatives: abdominal pain, diaphoresis, dizziness, lower extremity pain, lower extremity swelling. The chest pain is described as aching. Severity of pain: At its worst the pain was mild in the emergency department the pain has resolved. The patient has experienced similar episodes in the past. Historical: - Allergies: 12/11 23:39 No Known Allergies; sj1 - Home Meds: 23:39 metoprolol tartrate oral 2 times per day [Active]; sj1 - Immunization history:: Adult Immunizations up to date, Client reports having NOT received the Covid vaccine. - Social history:: Smoking status: Patient denies any tobacco usage or history of. - Family history:: not pertinent. ROS: 12/12 00:15 Constitutional: Negative for fever, chills, and weight loss. ma2 All other systems are negative. Exam: 00:15 Constitutional: This is a well developed, well nourished patient who is awake, alert, ma2 and in no acute distress. Head/Face: Normocephalic, atraumatic. Eyes: Pupils equal round and reactive to light, extra-ocular motions intact. Lids and lashes normal. Conjunctiva and sclera are non-icteric and not injected. Cornea within normal limits. Periorbital areas with no swelling, redness, or edema. ENT: Nares patent. No nasal discharge, no septal abnormalities noted. Tympanic membranes are normal and external auditory canals are clear. Oropharynx with no redness, swelling, or masses, exudates, or evidence of obstruction, uvula midline. Mucous membranes moist. Neck: Trachea midline, no thyromegaly or masses palpated, and no cervical lymphadenopathy. Supple, full range of motion without nuchal rigidity, or vertebral point tenderness. No Meningismus. Chest/axilla: Normal chest wall appearance and motion. Nontender with no deformity. No lesions are appreciated. Cardiovascular: Regular rate and rhythm with a normal S1 and S2. No gallops, murmurs, or rubs. Normal PMI, no JVD. No pulse deficits. Respiratory: Lungs have equal breath sounds bilaterally, clear to auscultation and percussion. No rales, rhonchi or wheezes noted. No increased work of breathing, no retractions or nasal flaring. Abdomen/GI: Soft, non-tender, with normal bowel sounds. No distension or tympany. No guarding or rebound. No evidence of tenderness throughout. Back: No spinal tenderness. No costovertebral tenderness. Full range of motion. Skin: Warm, dry with normal turgor. Normal color with no rashes, no lesions, and no evidence of cellulitis. MS/ Extremity: Pulses equal, no cyanosis. Neurovascular intact. Full, normal range of motion. Neuro: Awake and alert, GCS 15, oriented to person, place, time, and situation. Cranial nerves II-XII grossly intact. Motor strength 5/5 in all extremities. Sensory grossly intact. Cerebellar exam normal. Normal gait. Vital Signs: 12/11 23:34 BP 126 / 86 RA Sitting (auto/reg); Pulse 51; Resp 18; Temp 98.3(O); Pulse Ox 98% on sj1 R/A; Weight 65.77 kg (R); Height 5 ft. 7 in. (170.18 cm) (R); Pain 2/10; 12/12 01:47 BP 135 / 73; Pulse 61; Resp 18; Pulse Ox 99% on R/A; oe 12/11 23:34 Body Mass Index 22.71 (65.77 kg, 170.18 cm) [facility] MDM: 00:02 Patient medically screened. ma2 00:15 Differential diagnosis: abnormal EKG, anxiety, chest wall pain, gastroesophageal reflux ma2 disease (GERD). HEART Score: History: Slightly Suspicious (0), ECG: Normal (0), Age: < or = 45 years (0), Risk Factors: No Risk Factors Known (0), Troponin: < or = 1 x Normal Limit (0), Total Score = 0. Data reviewed: vital signs, nurses notes. 01:35 Counseling: I had a detailed discussion with the patient and/or guardian regarding: the ma2 historical points, exam findings, and any diagnostic results supporting the discharge/admit diagnosis, the presence of at least one elevated blood pressure reading (>120/80) during this emergency department visit, the need for outpatient follow up. Response to treatment: the patient's symptoms have markedly improved after treatment. 01:36 ED course: Chest pain is chest pain with deep breath, reproducible on exam, left-sided, ma2 atypical, had full work-up yesterday, he will see a jute bag sewer at 8 AM today.. 12/12 00:11 Order name: Basic Metabolic Panel; Complete Time: 34 dc2 12/12 00:11 Order name: CBC with Diff; Complete Time: : dc2 12/12 00:11 Order name: LFT's; Complete Time: 34 ma2 12/12 00:11 Order name: Magnesium; Complete Time: 34 dc2 12/12 00:11 Order name: NT PRO-BNP; Complete Time: 34 dc2 12/12 00:11 Order name: PT-INR; Complete Time: : ma2 12/12 00:11 Order name: Troponin (emerg Dept Use Only); Complete Time: 34 ma2 12/12 00:11 Order name: EKG; Complete Time: 00:13 dc2 12/12 00:11 Order name: Cardiac monitoring dc2 12/12 00:11 Order name: EKG - Nurse/Tech; Complete Time: 00:55 ma2 12/12 00:11 Order name: IV Saline Lock dc2 12/12 00:11 Order name: Labs collected and sent; Complete Time: 00:45 dc2 12/12 00:11 Order name: O2 Per Protocol; Complete Time: 00:45 dc2 12/12 00:11 Order name: O2 Sat Monitoring; Complete Time: 00:45 ma2 Administered Medications: No medications were administered Disposition Summary: 12/12/20 01:35 Discharge Ordered Location: Home ma2 Condition: Stable ma2 Diagnosis - Chest pain, unspecified ma2 Followup: ma2 - With: Private Physician - When: Tomorrow - Reason: Continuance of care Discharge Instructions: - Discharge Summary Sheet ma2 - Nonspecific Chest Pain, Adult ma2 Forms: - Medication Reconciliation Form ma2 - Thank You Letter ma2 - Antibiotic Education ma2 - Prescription Opioid Use ma2 Prescriptions: - Diclofenac Sodium 75 mg Oral Tablet Sustained Release - take 1 tablet by ORAL route 2 times per day; 30 tablet; Refills: 0, Product ma2 Selection Permitted Signatures: Dispatcher [employer] EDMS Lencho Leonardo MD MD ma2 Lorena Quiros RN RN sj1
--- NOTE | 2020-12-12 01:36 | ER ---
Nurse's Notes [facility] Name: Kingsley Alvarenga Age: 20 yrs Sex: Male : 2000 Arrival Date: 12/11/2020 Time: 23:23 Bed DIS1 Private MD: Diagnosis: Chest pain, unspecified Presentation: 12/11 23:34 Chief complaint: Patient states: worsening left sided chest pain, sob, nausea without sj1 vomiting, hx of heart murmur. Coronavirus screen: Vaccine status: Patient reports being unvaccinated. Ebola Screen: Patient negative for fever greater than or equal to 101.5 degrees Fahrenheit, and additional compatible Ebola Virus Disease symptoms Patient denies exposure to infectious person. Patient denies travel to an Ebola-affected area in the 21 days before illness onset. No symptoms or risks identified at this time. Initial Sepsis Screen: Does the patient meet any 2 criteria? No. Patient's initial sepsis screen is negative. Does the patient have a suspected source of infection? No. Patient's initial sepsis screen is negative. Risk Assessment: Do you want to hurt yourself or someone else? Patient reports no desire to harm self or others. Onset of symptoms was December 08, 2020. 23:34 Method Of Arrival: Ambulatory [facility] 23:34 Acuity: BILL 4 sj1 Triage Assessment: 23:39 General: Appears in no apparent distress. Behavior is calm, cooperative, appropriate sj1 for age. Pain: Complains of pain in chest Pain radiates to left arm Pain currently is 2 out of 10 on a pain scale. Quality of pain is described as squeezing. EENT: No deficits noted. Neuro: No deficits noted. Cardiovascular: Reports chest pain. Respiratory: No deficits noted. GI: Reports nausea. : No deficits noted. Derm: No deficits noted. Musculoskeletal: No deficits noted. Historical: - Allergies: 23:39 No Known Allergies; sj1 - Home Meds: 23:39 metoprolol tartrate oral 2 times per day [Active]; sj1 - Immunization history:: Adult Immunizations up to date, Client reports having NOT received the Covid vaccine. - Social history:: Smoking status: Patient denies any tobacco usage or history of. - Family history:: not pertinent. Screenin/01 00:46 Abuse screen: Denies threats or abuse. Nutritional screening: No deficits noted. df1 Tuberculosis screening: No symptoms or risk factors identified. Fall Risk None identified. Assessment: 00:46 Pain: Pain began gradually. df1 00:47 General: Appears in no apparent distress. Behavior is calm, cooperative. Pain: Denies df1 pain. Pain: Denies pain. Pain: Complains of pain in Pt states intermittent chest wall pain that radiates to left arm. Currently denies pain. Neuro: No deficits noted. Cardiovascular: No deficits noted. Respiratory: No deficits noted. GI: No deficits noted. : No deficits noted. EENT: No deficits noted. Derm: No deficits noted. Musculoskeletal: No deficits noted. Vital Signs: 12/11 23:34 BP 126 / 86 RA Sitting (auto/reg); Pulse 51; Resp 18; Temp 98.3(O); Pulse Ox 98% on sj1 R/A; Weight 65.77 kg (R); Height 5 ft. 7 in. (170.18 cm) (R); Pain 04/23; 12/12 01:47 BP 135 / 73; Pulse 61; Resp 18; Pulse Ox 99% on R/A; oe 12/11 23:34 Body Mass Index 22.71 (65.77 kg, 170.18 cm) sj1 ED Course: 12/11 23:23 Patient arrived in ED. wm 23:39 Triage completed. sj1 23:39 Arm band placed on right wrist. sj1 23:58 Margarita Ashford, GRAEME is Primary Nurse. kg 12/12 00:02 Lencho Leonardo MD is Attending Physician. ma2 00:45 Basic Metabolic Panel Sent. df1 00:46 Patient has correct armband on for positive identification. Call light in reach. Adult df1 w/ patient. Pulse ox on. Cardiac monitoring not applicable on this patient. 00:46 No provider procedures requiring assistance completed. Patient maintains SpO2 df1 saturation greater than 95% on room air. 01:54 Patient did not have IV access during this emergency room visit. df1 Administered Medications: No medications were administered Outcome: 01:35 Discharge ordered by . ma2 01:53 Discharged to home ambulatory. df1 01:53 Condition: good 01:53 Discharge instructions given to patient, Instructed on discharge instructions, follow up and referral plans. medication usage, Demonstrated understanding of instructions, follow-up care, medications, Prescriptions given X 1. 01:54 Patient left the ED. df1 Signatures: Parish Johnson Mohammad, MD MD ma2 Margarita Ashford, RN RN Ryanne Roth Dawn df1 Lorena Quiros RN RN sj1
[2020-12-12 01:59] VITALS: TEMP 98.3
[2020-12-12 02:00] VITALS: BP 135/73; O2SAT 99
--- NOTE | 2020-12-12 10:40 | EKG ---
Test Date: 2020-12-12 Test Time: 00:51:14 Metal Worker: MAICOL MEASUREMENT RESULTS: Intervals: Rate: 46 [place]: 146 QRSD: 90 QT: 402 QTc: 351 [place]: P: 64 [place]: 146 QRS: 69 T: 33 INTERPRETIVE STATEMENTS: Sinus bradycardia Possible Left atrial enlargement Borderline ECG Compared to ECG 12/11/2020 07:14:31 Sinus arrhythmia no longer present Electronically Signed On 12-12-20 10:39:40 CDT by Deandre Gonzalez
== END 2020-12-12 01:54 | disposition home or self-care (01) ==
LOC: ER 23:22
DX: R07.9 Chest pain, unspecified (principal)
CPT/HCPCS: 36415; 80048; 80076; 83735; 83880; 84484; 85025; 85610; 93005; 99284

== ENCOUNTER → 2023-04-06 | Emergency (ER) | payer BC ==
[~2023-04-06] MED LIST: AMOX TR/K CLAV 400MG CHEW TAB PO ONE; AMOX/K CLAV 875 MG TAB ONE; AZITHROMYCIN 1 GM PACKET ONE; AZITHROMYCIN 250 MG TAB ONE; CEFTRIAXONE 1000 MG/VIAL ONE; LIDOCAINE 1% MPF 5 ML VIAL ONE; dexAMETHasone 10 MG/ML VIAL ONE
--- OUTSIDE RECORDS SUMMARY | 2023-04-06 08:13 | XMS REPORT | Continuity of Care Document ---
Author Name Unknown Address [address] [place] [address] [facility] thconnect Address [address] [place] [address] Care Team Providers [employer] Counterman Name Role Phone Maria Luisa Lutz Primary Care Physician KADEEM TARIQ Attending Clinician Unavailable Dain Karimi MD Attending Clinician Delta De Anda Attending Clinician Doctor Unassigned, [place] Attending Clinician U SURI Morton M.D. Attending Clinician Unavaila ble Payers Payer Name Policy Type Policy Number Effective Date Expirati on Date Source [facility] OUT OF STATE [id number] 2018 00:00:00 BCBS 2 [id number] 2022 00:00:00 Problems Condition Name Condition Details Condition Category Status Onset Date Resolution Date Last Treatment Date Treating Clinician Comments Source Sensation of fullness in both ears Sensation of fullness in both ears Problem Active [facility] No known active problems No known active problems Disease [facility] Allergies, Adverse Reactions, Alerts Allergy Name Allergy Type Status Severity Reaction(s) Onset Date Inactive Date Treating Clinician Comments Source NO KNOWN ALLERGIE S Drug Class Active [facility] Social History Social Habit Start Date Stop Date Quantity Comments Source Exposure to SARS-CoV-2 (event) Not sure [facility] Tobacco use and exposure 2017-05-20 00:00:00 2017-05-20 00:00:00 Never used [facility] Sex Assigned At 2000 00:00:00 2000 00:00:00 [facility] Smoking Status Start Date Stop Date Source Never smoker [facility] Medications Ordered Medication Name Filled Medication Name Start Date Stop Date Current Medication? Ordering Clinician Indication Dosage Frequency Signature (SIG) Comments Components Source No known medications 12-09 20:36: 20 No [facility] ketorolac (TORADOL) injection 30 mg 09-22 00:30: 00 09-22 00:02 :00 No 30mg 30 mg, Intramuscu lar, ONCE, 1 dose, 09/21/20 at 1930, DION
Fa culty member approving Restricted medication : ROBERT PHAM [facility] ibuprofen 600 mg tablet 09-21 00:00: 00 Yes [id number] 600mg Take 1 tablet by mouth every 8 (eight) hours as needed for Pain (scale 4-6). [facility] ibuprofen 600 mg tablet 09-21 00:00: 00 Yes [id number] 600mg Take 1 tablet by mouth every 8 (eight) hours as needed for Pain (scale 4-6). [facility] ibuprofen 600 mg tablet 09-21 00:00: 00 Yes [id number] 600mg Take 1 tablet by mouth every 8 (eight) hours as needed for Pain (scale 4-6). [facility] ibuprofen 600 mg tablet 09-21 00:00: 00 12-07 00:00 :00 No [id number] 600mg Take 1 tablet by mouth every 8 (eight) hours as needed for Pain (scale 4-6). [facility] cyclobenzap rine 5 mg tablet 12-10 00:00: 00 Yes [id number] 5mg Take 1 tablet by mouth 3 (three) times daily. [facility] traMADol (ULTRAM) 50 mg tablet 12-10 00:00: 00 Yes [id number] 50mg Take 1 tablet by mouth every 8 (eight) hours as needed for Pain (scale 4-6). [facility] cyclobenzap rine 5 mg tablet 12-10 00:00: 00 Yes [id number] 5mg Take 1 tablet by mouth 3 (three) times daily. [facility] traMADol (ULTRAM) 50 mg tablet 12-10 00:00: 00 Yes [id number] 50mg Take 1 tablet by mouth every 8 (eight) hours as needed for Pain (scale 4-6). [facility] cyclobenzap rine 5 mg tablet 12-10 00:00: 00 Yes [id number] 5mg Take 1 tablet by mouth 3 (three) times daily. [facility] traMADol (ULTRAM) 50 mg tablet 12-10 00:00: 00 Yes [id number] 50mg Take 1 tablet by mouth every 8 (eight) hours as needed for Pain (scale 4-6). [facility] cyclobenzap rine 5 mg tablet 12-10 00:00: 00 Yes [id number] 5mg Take 1 tablet by mouth 3 (three) times daily. [facility] traMADol (ULTRAM) 50 mg tablet 12-10 00:00: 00 Yes [id number] 50mg Take 1 tablet by mouth every 8 (eight) hours as needed for Pain (scale 4-6). [facility] cyclobenzap rine 5 mg tablet 12-10 00:00: 00 12-07 00:00 :00 No [id number] 5mg Take 1 tablet by mouth 3 (three) times daily. [facility] traMADol (ULTRAM) 50 mg tablet 12-10 00:00: 00 12-07 00:00 :00 No [id number] 50mg Take 1 tablet by mouth every 8 (eight) hours as needed for Pain (scale 4-6). [facility] ondansetron 4 mg disintegrat ing tablet 08-21 00:00: 00 Yes [id number] 4mg Take 1 tablet by mouth every 4 (four) hours as needed for Nausea and Vomiting (N/V). [facility] famotidine 20 mg tablet 08-21 00:00: 00 Yes [id number] 20mg Take 1 tablet by mouth 2 (two) times daily. [facility] ondansetron 4 mg disintegrat ing tablet 08-21 00:00: 00 Yes [id number] 4mg Take 1 tablet by mouth every 4 (four) hours as needed for Nausea and Vomiting (N/V). [facility] famotidine 20 mg tablet 08-21 00:00: 00 Yes [id number] 20mg Take 1 tablet by mouth 2 (two) times daily. [facility] ondansetron 4 mg disintegrat ing tablet 08-21 00:00: 00 Yes [id number] 4mg Take 1 tablet by mouth every 4 (four) hours as needed for Nausea and Vomiting (N/V). [facility] famotidine 20 mg tablet 08-21 00:00: 00 Yes [id number] 20mg Take 1 tablet by mouth 2 (two) times daily. [facility] ondansetron 4 mg disintegrat ing tablet 08-21 00:00: 00 Yes [id number] 4mg Take 1 tablet by mouth every 4 (four) hours as needed for Nausea and Vomiting (N/V). [facility] famotidine 20 mg tablet 08-21 00:00: 00 Yes [id number] 20mg Take 1 tablet by mouth 2 (two) times daily. [facility] ondansetron 4 mg disintegrat ing tablet 08-21 00:00: 00 12-07 00:00 :00 No [id number] 4mg Take 1 tablet by mouth every 4 (four) hours as needed for Nausea and Vomiting (N/V). [facility] famotidine 20 mg tablet 08-21 00:00: 00 12-07 00:00 :00 No [id number] 20mg Take 1 tablet by mouth 2 (two) times daily. [facility] fluticasone 50 mcg/actuati on nasal spray 2017-03 0 00:00: 00 Yes 1{spray } Use 1 Tippo in each nostril 2 (two) times daily. [facility] fluticasone 50 mcg/actuati on nasal spray 2017-03 0 00:00: 00 Yes 1{spray } Use 1 Tippo in each nostril 2 (two) times daily. [facility] fluticasone 50 mcg/actuati on nasal spray 2017-03 0 00:00: 00 Yes 1{spray } Use 1 Tippo in each nostril 2 (two) times daily. [facility] fluticasone 50 mcg/actuati on nasal spray 2017-03 00:00: 00 Yes 1{spray } Use 1 Tippo in each nostril 2 (two) times daily. [facility] fluticasone 50 mcg/actuati on nasal spray 2017-03 00:00: 00 12-07 00:00 :00 No 1{spray } Use 1 Tippo in each nostril 2 (two) times daily. [facility] naproxen 375 mg tablet 05-20 00:00: 00 Yes [id number] 375mg Take 1 tablet by mouth 2 (two) times daily with meals. [facility] naproxen 375 mg tablet 05-20 00:00: 00 Yes [id number] 375mg Take 1 tablet by mouth 2 (two) times daily with meals. [facility] naproxen 375 mg tablet 05-20 00:00: 00 Yes [id number] 375mg Take 1 tablet by mouth 2 (two) times daily with meals. [facility] naproxen 375 mg tablet 05-20 00:00: 00 Yes [id number] 375mg Take 1 tablet by mouth 2 (two) times daily with meals. [facility] naproxen 375 mg tablet 05-20 00:00: 00 12-07 00:00 :00 No [id number] 375mg Take 1 tablet by mouth 2 (two) times daily with meals. [facility] Vital Signs Vital Name Observation Time Observation Value Comments S ournataliya Systolic blood pressure 2020-12-10 00:20:00 140 mm[Hg] [facility] Diastolic blood pressure 2020-12-10 00:20:00 72 mm[Hg] [facility] Heart rate 2020-12-10 00:20:00 76 /min Unive [facility] Body temperature 2020-12-10 00:20:00 37.22 Cintia [facility] Respiratory rate 2020-12-10 00:20:00 18 /min [facility] Body height 2020-12-10 00:20:00 170.2 cm [facility] Body weight 2020-12-10 00:20:00 63.504 kg [facility] BMI 2020-12-10 00:20:00 21.93 kg/m2 [facility] Oxygen saturation in Arterial blood by Pulse oximetry 2020-12-10 00:20:00 98 /min [facility] Systolic blood pressure 2020-12-08 06:48:00 148 mm[Hg] [facility] Diastolic blood pressure 2020-12-08 06:48:00 88 mm[Hg] [facility] Heart rate 2020-12-08 06:48:00 66 /min Un[facility] Respiratory rate 2020-12-08 06:48:00 16 /min [facility] Oxygen saturation in Arterial blood by Pulse oximetry 2020-12-08 06:48:00 99 /min [facility] Body temperature 2020-12-08 03:24:00 36.83 Cint[facility] Body height 2020-12-08 03:24:00 170.2 cm [facility] Body weight 2020-12-08 03:24:00 65.772 kg [facility] BMI 2020-12-08 03:24:00 22.71 kg/m2 [facility] Systolic blood pressure 2020-11-12 09:38:00 128 mm[Hg] [facility] Diastolic blood pressure 2020-11-12 09:38:00 75 mm[Hg] [facility] Heart rate 2020-11-12 09:38:00 96 /min Un[facility] Body temperature 2020-11-12 09:38:00 36.61 Cint[facility] Respiratory rate 2020-11-12 09:38:00 20 /min [facility] Body weight 2020-11-12 09:38:00 65.772 kg [facility] BMI 2020-11-12 09:38:00 23.40 kg/m2 [facility] Oxygen saturation in Arterial blood by Pulse oximetry 2020-11-12 09:38:00 99 /min [facility] Systolic blood pressure 2020-09-22 00:00:00 128 mm[Hg] [facility] Diastolic blood pressure 2020-09-22 00:00:00 71 mm[Hg] [facility] Heart rate 2020-09-22 00:00:00 76 /min [facility] Respiratory rate 2020-09-22 00:00:00 17 /min [facility] Oxygen saturation in Arterial blood by Pulse oximetry 2020-09-22 00:00:00 100 /min [facility] Body temperature 2020-09-21 22:19:00 37.22 Cint[facility] Body height 2020-09-21 22:19:00 167.6 cm [facility] Body weight 2020-09-21 22:19:00 63.504 kg [facility] BMI 2020-09-21 22:19:00 22.60 kg/m2 [facility] Weight 2018-05-29 14:29:00 116.4375 [lb_av] [facility] Body Mass Index Calculated 2018-05-29 14:29:00 17.7 kg/m2 [facility] Heart Rate 2018-05-29 14:29:00 73 /min [facility] BP Systolic 2018-05-29 14:29:00 118 mm[Hg] [facility] BP Diastolic 2018-05-29 14:29:00 80 mm[Hg] [facility] Height 2018-05-29 14:29:00 68 [in_us] [facility] Procedures Procedure Date / Time Performed Performing Clinicia n Source EKG-12 LEAD 2020-12-08 06:34:32 Dain Karimi [facility] MAGNESIUM 2020-12-08 04:54:00 Dain Karimi S [facility] TROPONIN I 2020-12-08 04:54:00 Dain Karimi [facility] COMP. METABOLIC PANEL ([id number]) 2020-12-08 04:54:00 Dain Karimi [facility] CBC WITH DIFF 2020-12-08 04:54:00 Dain Karimi [facility] XR CHEST 1 VW 2020-12-08 04:42:25 Dain Karimi [facility] CONSENT/REFUSAL FOR DIAGNOSIS AND TREATMENT 2020-12-08 03:11:13 Doctor Unassigned, [place] [facility] NOTICE OF PRIVACY PRACTICES 2020-11-12 09:25:33 Doctor Unassigned, [place] [facility] CONSENT/REFUSAL FOR DIAGNOSIS AND TREATMENT 2020-11-12 09:25:12 Doctor Unassigned, [place] [facility] XR CHEST 1 VW 2020-09-21 23:29:00 [facility] CONSENT/REFUSAL FOR DIAGNOSIS AND TREATMENT 2020-09-21 22:07:34 Doctor Unassigned, [place] [facility] Encounters Start Date/Time End Date/Time Encounter Type Admission Type Attending Clinicians Care Facility Care Department Encounter ID Source 2021-01-13 02:08:51 Emergency [facility] [id number] [facility] 2021-01-13 01:27:56 Emergency [facility] [id number] [facility] 2021-01-12 19:32:30 Emergency [facility] [id number] [facility] 2021-01-12 07:20:57 Emergency [facility] [id number] [facility] 2022-10-06 14:30:00 2022-10-06 14:30:00 Outpatient KADEEM TARIQ [id number] Carola Rodriguez 2022-06-08 15:10:22 2022-06-08 15:10:22 Outpatient [facility] [id number] Matteo Salmon 2020-12-09 19:28:00 2020-12-09 20:49:00 Emergency Dain Karimi [facility] [id number] [facility] 2020-12-07 22:27:00 2020-12-08 01:51:00 Emergency Dain Karimi [facility] [id number] [facility] 2020-11-12 04:42:00 2020-11-12 05:51:00 Emergency Dain Karimi [facility] [id number] [facility] 2020-09-21 17:25:00 2020-09-21 19:23:00 Emergency Delta Evangelista [facility] [id number] [facility] 2020-09-21 00:00:00 2020-09-21 00:00:00 Orders Only Doctor Unassigned, [place] [facility] [id number] [facility] 2018-05-29 13:45:00 2018-05-29 13:45:00 Appointjah douglas; SURI CHA M.D. SURI CHA M.D. [facility] Otorhinolar yngology [facility] [id number] [facility] Results Test Description Test Time Test Comments Results Result Co mments Source [facility] 05:25:02* Test Item Value Reference Range Interpretation Comme nts MAGNESIUM (test code = 0283153151) 2.2 mg/dL 1.7-2.4 Lab Interpretation (test cod e = 54828-2) Normal [facility]. METABOLIC PANEL ([id number])2020-12-08 05:24:46* Test Item Value Reference Range Interpretation Comme nts NA (test code = 3060063471) 140 mmol/L 135-145 K (test code = 9178945932) 3.6 mmol/L 3.5-5.0 CL (test code = 0311699462) 104 mmol/L 98-108 CO2 TOTAL (test code = 5510184818) 26 mmol/L 23-31 AGAP (test code = 7662334571) 2-16 BUN (test code = 7502961250) 8 mg/dL 7-23 GLUCOSE (test code = 3148163851) 114 mg/dL 70-110 H CREATININE (test code = 2849108631) 0.68 mg/dL 0.60-1.25 TOTAL BILI (test code = 0333757245) 1.1 mg/dL 0.1-1.1 CALCIUM (test code = 8741836254) 9.6 mg/dL 8.6-10.6 T PROTEIN (test code = 9256633429) 8.0 g/dL 6.3-8.2 ALBUMIN (test code = 8592531202) 4.8 g/dL 3.5-5.0 ALK PHOS (test code = 7958961074) 55 U/L 34-122 ALTv (test code = 1742-6) 22 U/L 5-50 AST(SGOT) (test code = 2790060493) 26 U/L 13-40 eGFR (test code = 3868655545) mL/min/1.73m2 JORGITO (test code = JORGITO) Association of Glomerular Filtration Rate (GFR) and Staging of Kidney Disease* + --+ --+ ------+| GFR (mL/min/1.73 m2) ?| With Kidney Damage ?| ?Without Kidney Damage+ --------+ --------+ +| ?>90 ?| ?Stage one ?| ? Normal ?+ ---+ ---+ -------+| ?60-89 ?| ?Stage two ?| ? Decreased GFR ? + --+ --+ ------+| ?30-59 ?| ?Stage three ?| ? Stage three ? + --+ --+ ------+| ?15-29 ?| ?Stage four ? | ? Stage four ?+ ---+ ---+ -------+| ?<15 (or dialysis) ? ?| ?Stage five ? | ? Stage five ?+ ---+ ---+ -------+ *Each stage assumes the associated GFR level has been in effect for at least three months. ?Stages 1 to 5, with or without kidney disease, indicate chronic kidney disease. Notes: Determination of stages one and two (with eGFR >59mL/min/1.73 m2) requires estimation of kidney damage for at least three months as defined by structural or functional abnormalities of the kidney, manifested by either:Pathological abnormalities or Markers of kidney damage (including abnormalities in the composition of the blood or urine or abnormalities in imaging tests). Lab Interpretation (test code = 22151-4) Abnormal [facility] WITH LDRK2453-10-28 05:09:36* Test Item Value Reference Range Interpretation Comme nts WBC (test code = 6690-2) See_Comment [[employer]] The system which generated this result transmitted reference range: 4.20 - 10.70 10*3/?L. The reference range was not used to interpret this result as normal/abnormal. RBC (test code = 789-8) See_Comment [[employer]] The system which generated this result transmitted reference range: 4.26 - 5.52 10*6/?L. The reference range was not used to interpret this result as normal/abnormal. HGB (test code = 718-7) 16.3 g/dL 12.2-16.4 HCT (test code = 4544-3) 45.7 % 38.4-49.3 MCV (test code = 787-2) 84.0 fL 81.7-95.6 MCH (test code = 785-6) 30.0 pg 26.1-32.7 MCHC (test code = 786-4) 35.7 g/dL 31.2-35.0 H RDW-SD (test code = 10024-3) 36.8 fL 38.5-51.6 L RDW-CV (test code = 788-0) 12.2 % 12.1-15.4 PLT (test code = 777-3) See_Comment [[employer]] The system which generated this result transmitted reference range: 150 - 328 10*3/?L. The reference range was not used to interpret this result as normal/abnormal. MPV (test code = 69242-0) 9.9 fL 9.8-13.0 NRBC/100 WBC (test code = 5487134816) See_Comment [[employer]] The system which generated this result transmitted reference range: 0.0 - 10.0 /100 WBCs. The reference range was not used to interpret this result as normal/abnormal. NRBC x10^3 (test code = 9263255050) <0.01 See_Comment [Automated messa ge] The system which generated this result transmitted reference range: 10*3/?L. The reference range was not used to interpret this result as normal/abnormal. GRAN MAT (NEUT) % (test code = 770-8) 59.0 % IMM GRAN % (test code = 0774743415) 0.10 % LYMPH % (test code = 736-9) 31.8 % MONO % (test code = 5905-5) 7.3 % EOS % (test code = 713-8) 0.8 % BASO % (test code = 706-2) 1.0 % GRAN MAT x10^3(ANC) (test code = 0862036183) 4.86 10*3/uL 1.99-6.95 IMM GRAN x10^3 (test code = 8133347168) <0.03 0.00-0.06 LYMPH x10^3 (test code = 731-0) 2.62 10*3/uL 1.09-3.23 MONO x10^3 (test code = 742-7) 0.60 10*3/uL 0.36-1.02 EOS x10^3 (test code = 711-2) 0.07 10*3/uL 0.06-0.53 BASO x10^3 (test code = 704-7) 0.08 10*3/uL 0.01-0.09 Lab Interpretation (test code = 37242-9) Abnormal [facility]"
[2023-04-06 09:02] LABS: SARS-CoV-2 Antigen Rapid Res Negative (Negative)
--- NOTE | 2023-04-06 09:44 | ER ---
Nurse's Notes [facility] Name: Kingsley Alvarenga Age: 22 yrs Sex: Male : 2000 Arrival Date: 04/06/2023 Time: 08:09 Bed 11 Private MD: Diagnosis: Acute streptococcal tonsillitis, unspecified;Acute tonsillitis, unspecified;Acute pharyngitis, unspecified Presentation: 04/06 08:22 Chief complaint: Patient states: Sore throat, SCOTT, fever, fatigue since Tuesday. ll1 Coronavirus screen: Vaccine status: Patient reports receiving the 1st dose of the Covid vaccine. Client denies travel out of the [place] in the last 14 days. fatigue, fever, headache, sore throat, Client presents with at least one sign or symptom that may indicate coronavirus-19. Standard/surgical mask placed on the client. Ebola Screen: Patient denies travel to an Ebola-affected area in the 21 days before illness onset. Initial Sepsis Screen: Does the patient meet any 2 criteria? No. Patient's initial sepsis screen is negative. Does the patient have a suspected source of infection? No. Patient's initial sepsis screen is negative. Risk Assessment: Do you want to hurt yourself or someone else? Patient reports no desire to harm self or others. Onset of symptoms was April 04, 2023. 08:22 Method Of Arrival: Ambulatory 1 08:22 Acuity: BILL 4 ll1 Triage Assessment: 08:22 General: Appears ill, Behavior is calm, cooperative, appropriate for age. General: ll1 Reports chills for fever for feeling ill for fatigue for. Pain: Complains of pain in throat Quality of pain is described as aching. EENT: Reports pain when swallowing. Historical: - Allergies: 08:22 No Known Allergies; ll1 - PMHx: 08:22 None; ll1 - PSHx: 08:22 None; ll1 - Immunization history:: Adult Immunizations up to date. - Social history:: Smoking status: Patient denies any tobacco usage or history of. Screenin:08 [facility] ED Fall Risk Assessment (Adult) Score/Fall Risk Level 0 - 2 = Low Risk ll1 Oriented to surroundings, Maintained a safe environment, Educated pt \T\ family on fall prevention, incl call for assistance when getting out of bed, Hourly rounding (assess needs \T\ fall precautionary measures) done. Abuse screen: Denies threats or abuse. Nutritional screening: No deficits noted. Tuberculosis screening: No symptoms or risk factors identified. Assessment: 08:45 Reassessment: No changes from previously documented assessment. Patient and/or family ll1 updated on plan of care and expected duration. Pain level reassessed. 10:07 Reassessment: No changes from previously documented assessment. Patient and/or family ll1 updated on plan of care and expected duration. Pain level reassessed. Patient is alert, oriented x 3, equal unlabored respirations, skin warm/dry/pink. Vital Signs: 08:22 BP 125 / 75; Pulse 87; Resp 16; Temp 98.2; Pulse Ox 98% ; Weight 68.04 kg; Height 5 ft. ll1 7 in. ; Pain 8/10; 10:05 Pulse 85; Resp 16; Pulse Ox 98% on R/A; ll1 08:22 Body Mass Index 23.49 (68.04 kg, 170.18 cm) ll1 08:22 Pain Scale: Adult ll1 ED Course: 08:13 Patient arrived in ED. mg5 08:20 Osvaldo Steve MD is Attending Physician. yoly 08:23 Triage completed. ll1 08:23 Arm band placed on Patient placed in an exam room, on a stretcher. ll1 08:35 Patient has correct armband on for positive identification. Bed in low position. Call ll1 light in reach. Provided Education on: ER procedures and process. 08:39 Flu Sent. ll1 08:39 SARS RAPID Sent. ll1 09:31 Philip Francisco RN is Primary Nurse. ll1 09:43 Sybil Hutton MD is Referral Physician. yoly 10:08 No provider procedures requiring assistance completed. Patient did not have IV access ll1 during this emergency room visit. Administered Medications: 08:39 Not Given (Patient Refused): ns 0.9% 1000 ml IV at 1 bolus Per protocol; 1000 mL bolus ll1 09:48 Drug: Rocephin (cefTRIAXone) IM 1 grams IM once Route: IM; Site: left vastus lateralis; ll1 10:06 Follow up: Response: No adverse reaction ll1 09:49 Drug: Dexamethasone IM 10 mg IM once Route: IM; Site: right vastus lateralis; ll1 10:07 Follow up: Response: No adverse reaction ll1 09:57 Drug: AZITHromycin PO 1 grams PO once Route: PO; ll1 10:07 Follow up: Response: No adverse reaction ll1 09:58 Not Given (Patient Refused): amoxicillin-ocevcqtkzto326 mg PO once ll1 09:58 Drug: Amoxicillin-Clavulanate PO Chewable Tablet 800 mg PO once Route: PO; ll1 10:07 Follow up: Response: No adverse reaction ll1 Medication: 10:09 VIS not applicable for this client. ll1 Outcome: 09:44 Discharge ordered by . yoly 10:08 Discharged to home ambulatory, ll1 10:08 Condition: stable 10:08 Discharge instructions given to patient, family, Instructed on discharge instructions, follow up and referral plans. medication usage, Demonstrated understanding of instructions, follow-up care, medications, Prescriptions given X 2, 10:09 Patient left the ED. ll1 Signatures: Osvaldo Steve MD MD cha Lewis, Lynsay, RN RN ll1 Oly Green mg5 Corrections: (The following items were deleted from the chart) 10:10 10:05 Resp 85bpm; Pulse Ox 98%; Temp 16F; ll1 ll1
--- NOTE | 2023-04-06 09:44 | EDPHYS ---
Physician Documentation [facility] Name: Kingsley Alvarenga Age: 22 yrs Sex: Male : 2000 Arrival Date: 04/06/2023 Time: 08:09 Bed 11 Private MD: ED Physician Osvaldo Steve HPI: 04/06 09:36 This 22 yrs old Male presents to ER via Ambulatory with complaints of Doesnt yoly Feel Good. 09:36 The patient presents with sore throat. The patient describes throat pain as constant, yoly raw, scratchy. Severity of symptoms: At their worst the symptoms were mild, in the emergency department the symptoms are unchanged. Modifying factors: The symptoms are alleviated by nothing. Associated signs and symptoms: Pertinent positives: chills. The patient has not experienced similar symptoms in the past. Historical: - Allergies: 08:22 No Known Allergies; ll1 - PMHx: 08:22 None; ll1 - PSHx: 08:22 None; ll1 - Immunization history:: Adult Immunizations up to date. - Social history:: Smoking status: Patient denies any tobacco usage or history of. ROS: 09:38 Constitutional: Negative for fever, chills, and weight loss, Eyes: Negative for injury, yoly pain, redness, and discharge, Neck: Negative for injury, pain, and swelling, Cardiovascular: Negative for chest pain, palpitations, and edema, Respiratory: Negative for shortness of breath, cough, wheezing, and pleuritic chest pain, Abdomen/GI: Negative for abdominal pain, nausea, vomiting, diarrhea, and constipation, Back: Negative for injury and pain, : Negative for injury, bleeding, discharge, and swelling, MS/Extremity: Negative for injury and deformity, Skin: Negative for injury, rash, and discoloration, Neuro: Negative for headache, weakness, numbness, tingling, and seizure, Psych: Negative for depression, anxiety, suicide ideation, homicidal ideation, and hallucinations, Allergy/Immunology: Negative for hives, rash, and allergies, Endocrine: Negative for neck swelling, polydipsia, polyuria, polyphagia, and marked weight changes, Hematologic/Lymphatic: Negative for swollen nodes, abnormal bleeding, and unusual bruising, 09:38 ENT: Positive for rhinorrhea, sinus congestion, sore throat, Exam: 09:38 Constitutional: This is a well developed, well nourished patient who is awake, alert, yoly and in no acute distress. Head/Face: Normocephalic, atraumatic. Eyes: Pupils equal round and reactive to light, extra-ocular motions intact. Lids and lashes normal. Conjunctiva and sclera are non-icteric and not injected. Cornea within normal limits. Periorbital areas with no swelling, redness, or edema. Neck: Trachea midline, no thyromegaly or masses palpated, and no cervical lymphadenopathy. Supple, full range of motion without nuchal rigidity, or vertebral point tenderness. No Meningismus. Chest/axilla: Normal chest wall appearance and motion. Nontender with no deformity. No lesions are appreciated. Cardiovascular: Regular rate and rhythm with a normal S1 and S2. No gallops, murmurs, or rubs. Normal PMI, no JVD. No pulse deficits. Respiratory: Lungs have equal breath sounds bilaterally, clear to auscultation and percussion. No rales, rhonchi or wheezes noted. No increased work of breathing, no retractions or nasal flaring. Abdomen/GI: Soft, non-tender, with normal bowel sounds. No distension or tympany. No guarding or rebound. No evidence of tenderness throughout. Back: No spinal tenderness. No costovertebral tenderness. Full range of motion. Male : Normal genitalia with no discharge or lesions. Skin: Warm, dry with normal turgor. Normal color with no rashes, no lesions, and no evidence of cellulitis. MS/ Extremity: Pulses equal, no cyanosis. Neurovascular intact. Full, normal range of motion. Neuro: Awake and alert, GCS 15, oriented to person, place, time, and situation. Cranial nerves II-XII grossly intact. Motor strength 5/5 in all extremities. Sensory grossly intact. Cerebellar exam normal. Normal gait. Psych: Awake, alert, with orientation to person, place and time. Behavior, mood, and affect are within normal limits. 09:38 ENT: Posterior pharynx: Airway: normal, no evidence of obstruction, Tonsils: bilaterally enlarged, with erythema, Uvula: normal, midline, non-edematous, no erythema, swelling, that is mild, erythema, that is mild, Vital Signs: 08:22 BP 125 / 75; Pulse 87; Resp 16; Temp 98.2; Pulse Ox 98% ; Weight 68.04 kg; Height 5 ft. ll1 7 in. ; Pain 8/10; 10:05 Pulse 85; Resp 16; Pulse Ox 98% on R/A; ll1 08:22 Body Mass Index 23.49 (68.04 kg, 170.18 cm) ll1 08:22 Pain Scale: Adult ll1 MDM: 08:20 Patient medically screened. yoly 09:40 Differential diagnosis: bronchitis, cocksackie virus, echovirus infection, group A yoly strep tonsillitis, influenza, laryngitis, peritonsillar abscess pharyngitis. Data reviewed: vital signs, nurses notes, lab test result(s), Flu: negative. Consideration of Admission/Observation Escalation of care including admission/observation considered. I considered the following discharge prescriptions or medication management in the emergency department Medications were administered in the Emergency Department. See MAR. Test considered but Not performed: Labs: no cbc, no comp met. Historians other than the Patient: Friend: girlfriend. Care significantly affected by the following chronic conditions: none. 04/06 08:20 Order name: Flu yoly 04/06 08:20 Order name: SARS RAPID yoly Administered Medications: 08:39 Not Given (Patient Refused): ns 0.9% 1000 ml IV at 1 bolus Per protocol; 1000 mL bolus ll1 09:48 Drug: Rocephin (cefTRIAXone) IM 1 grams IM once Route: IM; Site: left vastus lateralis; ll1 10:06 Follow up: Response: No adverse reaction ll1 09:49 Drug: Dexamethasone IM 10 mg IM once Route: IM; Site: right vastus lateralis; ll1 10:07 Follow up: Response: No adverse reaction ll1 09:57 Drug: AZITHromycin PO 1 grams PO once Route: PO; ll1 10:07 Follow up: Response: No adverse reaction ll1 09:58 Not Given (Patient Refused): amoxicillin-sjvaeinsnpp297 mg PO once ll1 09:58 Drug: Amoxicillin-Clavulanate PO Chewable Tablet 800 mg PO once Route: PO; ll1 10:07 Follow up: Response: No adverse reaction ll1 Disposition Summary: 04/06/23 09:44 Discharge Ordered Notes: Location: Home yoly Problem: new yoly Symptoms: have improved yoly Condition: Stable yoly Diagnosis - Acute streptococcal tonsillitis, unspecified yoly - Acute tonsillitis, unspecified yoly - Acute pharyngitis, unspecified yoly Followup: yoly - With: Private Physician - When: 2 - 3 days - Reason: Recheck today's complaints, Continuance of care, Re-evaluation by your physician Followup: yoly - With: Sybil Hutton MD - When: 2 - 3 days - Reason: Recheck today's complaints, Continuance of care, Re-evaluation by your physician Discharge Instructions: - Discharge Summary Sheet yoly - Pharyngitis yoly - Sore Throat yoly - Tonsillitis yoly - Tonsillitis, [id number] yoly - Pharyngitis, [id number] [facility] Forms: - Medication Reconciliation Form yoly - Thank You Letter yoly - Antibiotic Education yoly - Prescription Opioid Use yoly - Patient Portal Instructions yoly - Leadership Thank You Letter yoly - Work release form ll1 Prescriptions: - Augmentin 875-125 mg Oral Tablet - take 1 tablet ORAL route every 12 hours for 10 days; 20 tablet; Refills: 0, yoly Product Selection Permitted - Tessalon Perles 100 mg Oral capsule - take 2 capsule ORAL route every 8 hours As needed; 30 capsule; Refills: 0, yoly Product Selection Permitted Signatures: Dispatcher [employer] EDOsvaldo Sotomayor MD MD cha Lewis, Lynsay, RN RN ll1 Corrections: (The following items were deleted from the chart) 08:44 08:22 CBC+H.LAB.BRZ ordered. EDMS EDMS 08:44 08:22 COMPREHENSIVE METABOLIC PANEL+C.LAB.BRZ ordered. EDMS EDMS 08:44 08:22 Group A Streptococcus Rapid Sc+BA.LAB.BRZ ordered. EDMS EDMS
[2023-04-06 11:27] VITALS: BP 125/75; TEMP 98.2; O2SAT 98
== END ==
LOC: ER 08:09
DX: J03.00 Acute streptococcal tonsillitis, unspecified (principal); Z11.52 Encounter for screening for COVID-19
CPT/HCPCS: 36415; 87804 ×2; 96372; 99284; 87811; J2001; J1100; J0696